=== PATIENT | male | born 1980 ===

== ENCOUNTER 2024-11-29 08:17 | Day surgery (SDC) | payer OTHER, SELFPAY ==
[2024-11-29 08:30] VITALS: BMI 39.1
--- NOTE | 2024-11-29 08:32 | ANES.PREANE2 ---
Pre-Anesthetic Assessment Height/Weight: Height 1.85 m Preop Diagnosis: screening Operation Date: 11/29/24 09:15 Proposed Procedures p Colonoscopy 94124, G0121, Z12.11(Not Applicable) - Vik Ellington MD Familial anesthetic complications: none Was Beta Henrique taken within 24 hours: N/A Was Clonidine taken within 24 hours: N/A Social No alcohol and No tobacco Exam alert, oriented x 3, clear to auscultation bilaterally and regular rate & rhythm Airway Mallampati: Class II Comments: Comments: teeth intact, short thick neck History/ROS No significant complaints Pulmonary None reported CV/HEM Hypertension None reported Hepatic None reported GI None reported Metabolic Hyperlipidemia and Morbid Obesity BMI 39 Musc/skel None reported Neuropsych None reported Anesthetic Plan ASA status: 3 Anesthesia: MAC Risk of > 500 ml blood loss (7ml/kg in children): No Medications/Allergies Home Medications ?Medication ?Instructions ?Recorded ?Confirmed ?Last Taken ?Type ramipril 10 mg capsule 10 mg PO QDAY 11/10/24 11/24/24 11/24/24 History simvastatin 10 mg tablet 10 mg PO QDAY 11/10/24 11/24/24 11/24/24 History Allergies Allergy/AdvReac Type Severity Reaction Status Date / Time No Known Allergies Allergy Verified 11/29/24 08:25 [facility] Anesthesia Family History (Updated 11/10/24 @ 10:58 by LUIZ Cagle) Father Colon cancer Cancer pancreatic Social History Smoking and tobacco/nicotine status: never used tobacco/nicotine Data Anesthesia Cardiac Studies: No Data to Display
[2024-11-29 08:36] VITALS: BP 148/103; PULSE 86; RESP 16; TEMP 36.3; O2SAT 96
[2024-11-29] MEDS: sodium chloride 0.9% 1,000 ML 30 ML IV (08:39)
--- NOTE | 2024-11-29 08:49 | W.PM.OPSUD ---
Surgery/Procedure H&P Update DATE OF PROCEDURE: November 29, 2024 DATE H&P PERFORMED: 11/10/24 H&P UPDATE INFORMATION: I have reviewed H&P completed within last 30 days, I have examined patient prior to procedure and No changes to prior documentation PREOP DIAGNOSIS: screening PLANNED PROCEDURE: Operation Date: 11/29/24 09:15 Proposed Procedures p Colonoscopy 34279, G0121, Z12.11(Not Applicable) - Vik Ellington MD
[2024-11-29 09:28] VITALS: BP 172/100; PULSE 97; RESP 18; O2SAT 95
--- NOTE | 2024-11-29 09:55 | ANE.PACU2 ---
Inpatient post-anesthesia follow up: Airway intact: Yes Vital signs: Temperature 97.4 F Pulse Rate 97 Respiratory Rate 18 Blood Pressure 172/100 Pulse Oximetry 95 Oxygen Delivery Me thod Oxygen Flow Rate Fraction of Inspir ed Oxygen Hydration adequate: Yes Nausea and vomiting: No Pain level: 1 Mental status: Baseline
== END 2024-11-29 09:55 | disposition home or self-care (01) ==
PROVIDERS: PCP Nurse Practitioner Family; Visit Provider Student in an Organized Health Care Education/Training Program
PROC: 0DJD8ZZ Inspection of Lower Intestinal Tract, Via Natural or Artificial Opening Endoscopic (ICD-10-PCS; CPT 45378; principal; 2024-11-29 09:15)
DX: Z12.11 Encounter for screening for malignant neoplasm of colon (principal); K57.30 Diverticulosis of large intestine without perforation or abscess without bleeding; R19.5 Other fecal abnormalities; E78.5 Hyperlipidemia, unspecified; E66.01 Morbid (severe) obesity due to excess calories; Z68.39 Body mass index [BMI] 39.0-39.9, adult; Z79.899 Other long term (current) drug therapy; Z80.0 Family history of malignant neoplasm of digestive organs
CPT/HCPCS: 45378; J2704; J7030